=== PATIENT | female | born 1955 | race Caucasian/White ===

== ENCOUNTER → 2017-05-08 | Outpatient (CLI) | payer SELFPAY ==
[~2017-05-08] MED LIST: BACDS PO; CALC500T42 PO; CHOL400C10 PO; LACT1CAP6 PO; LYSI500C3 PO; NAPR-1043 PO; PHENA200 PO; SELE50TA16 PO; VITA200C22 PO
--- NOTE | 2017-05-11 09:57 | RADIOLOGY IMAGING REPORT ---
[place]AC[place] [facility] [place] NAME: CHARAN CRAMER : [id number] MR: [id number] V: [id number] EXAM DATE: ORDERING PHYSICIAN: LEYDI CHAPIN TECHNOLOGIST: Bettie Can PROCEDURE:BILATERAL DIGITAL SCREENING MAMMOGRAM WITH CAD ASSISTED INTERPRETATION AND 3D BREAST TOMOSYNTHESIS. COMPARISON:None. This is patient's baseline mammogram. INDICATIONS:BASELINE FINDINGS: Extremely dense heterogeneous fibroglandular tissue is seen throughout the breasts. There is a grouping of indeterminate calcifications in the upper outer quadrant of the left breast for which spot magnification views are recommended. Additionally, there is a focal area of increased density in the upper portion of the left breast zone 1 for which spot compression view is recommended and a focal area of increased density in the medial portion of the left breast on the left CC view, junction zones 1 and 2. DIAGNOSTIC CATEGORY 1--NEGATIVE. RECOMMENDATIONS: ROUTINE MAMMOGRAM AND CLINICAL EVALUATION. IMPRESSION: BI-RADS 0: Additional views of both breasts recommended as described. Images were reviewed with R2CAD and 3D breast tomosynthesis. Dictated by: Geetha King M.D. on 05/08/2017 at 11:12 Transcribed by: VALENCIA on 05/10/2017 at 19:41 Approved by: Geetha King M.D. on 05/11/2017 at 9:56 [facility]
== END ==
LOC: MAMO 01:05
PROVIDERS: ATTEND Nurse Practitioner Family
DX: Z12.31 Encounter for screening mammogram for malignant neoplasm of breast (principal); R92.8 Other abnormal and inconclusive findings on diagnostic imaging of breast
CPT/HCPCS: 77063; 77067